=== PATIENT | male | born 1975 | race Caucasian/White ===

== ENCOUNTER 2020-06-21 16:09 | Inpatient (IN) ==
[2020-06-21 17:35] LABS: ABS Basophils 0.1 10^3/ul (0-0.2); ABS Lymphocytes 2.3 10^3/ul (1.0-4.8); ABS Monocytes 0.5 10^3/ul (0-0.8); ABS Neutrophils 5.3 10^3/ul (1.5-7.7); Eosinophil % 0.5 %; Hematocrit 47 % (42-52); Hemoglobin 16.6 g/dL (14.0-18.0); Lymphocyte % 28.2 %; Mean Corpuscular HGB Conc 35 g/dL (31-36); Mean Corpuscular Hemoglobin 29 pg (27-31); Mean Corpuscular Volume 82 fL (80-94); Mean Platelet Volume 7.3 fL (7.4-10.4); Platelet Count 265 10^3/uL (150-450); Red Cell Distribution Width 14 % (10-15); White Blood Count 8.2 10^3/uL (3.5-10.8)
[2020-06-21 17:42] LABS: Urine Appearance Clear; Urine Bilirubin Negative (Negative); Urine Blood Negative (Negative); Urine Color Yellow; Urine Glucose Negative (Negative); Urine Ketones Negative (Negative); Urine Nitrite Negative (Negative); Urine Protein Negative (Negative); Urine Specific Gravity 1.023 (1.010-1.030); Urine Urobilinogen Negative (Negative)
[2020-06-21 17:52] LABS: ALT 29 U/L (7-52); AST 21 U/L (13-39); Albumin 4.4 g/dL (3.2-5.2); Albumin/Globulin Ratio 1.6 (1-3); Alkaline Phosphatase 86 U/L (34-104); Anion Gap 7 mmol/L (2-11); Blood Urea Nitrogen 18 mg/dL (6-24); CO2 Carbon Dioxide 24 mmol/L (22-32); Calcium 9.3 mg/dL (8.6-10.3); Chloride 108 mmol/L (101-111); EGFR Non-African American 66.1 (>60); Globulin 2.7 g/dL (2-4); Glucose 95 mg/dL (70-100); Potassium 3.8 mmol/L (3.5-5.0); Sodium 139 mmol/L (135-145); Total Protein 7.1 g/dL (6.4-8.9)
[2020-06-21 17:58] LABS: Urine Benzodiazepine Screen None Detected (None Detect); Urine Cannabinoids Screen None Detected (None Detect); Urine Opiates Screen None Detected (None Detect)
[2020-06-21 18:23] LABS: Acetaminophen < 15 mcg/mL; Alcohol, S < 10 mg/dL (<10); Salicylate < 2.50 mg/dL (<30)
[2020-06-21 18:36] LABS: TSH Ultra Thyroid Stim Horm 3.28 mcIU/mL (0.34-5.60)
[2020-06-22] MEDS ORDERED: Al Hydrox/Mg Hydrox/Simet LIQ 30 ML UDC PO PRN (12:16)
[2020-06-23] MEDS ORDERED: Vitamin THERAPEUTIC TAB ONE (08:52)
[2020-06-23] MEDS: Vitamin THERAPEUTIC TAB PO SCH (09:30)
[2020-06-23] MEDS: CMCS:Omeprazole 20 mg CAP (NF) PO SCH (09:30)
[2020-06-24] MEDS: Vitamin THERAPEUTIC TAB PO SCH (08:08)
[2020-06-24] MEDS: CMCS:Omeprazole 20 mg CAP (NF) PO SCH (08:08)
[2020-06-25 08:16] LABS: HDL Cholesterol 22.9 mg/dL
[2020-06-25] MEDS: Vitamin THERAPEUTIC TAB PO SCH (10:55)
[2020-06-25] MEDS: CMCS:Omeprazole 20 mg CAP (NF) PO SCH (10:55)
[2020-06-26] MEDS: CMCS:Omeprazole 20 mg CAP (NF) PO SCH (08:25)
[2020-06-26] MEDS: Vitamin THERAPEUTIC TAB PO SCH (08:26)
[2020-06-26 12:55] VITALS: BP 112/73
== END 2020-06-26 15:54 | disposition home or self-care (01) | DRG 885 ==
LOC: ED 16:09 → BSU 06-22 11:01
PROVIDERS: ADMIT Psychiatry & Neurology Psychiatry; ATTEND Psychiatry & Neurology Psychiatry